=== PATIENT | male | born 1975 | race Caucasian/White ===

== ENCOUNTER 2017-09-13 01:24 | Emergency (ER) | payer MEDICAID ==
[~2017-09-13] VITALS: Ht 193 cm; Wt 122.5 kg
--- NOTE | 2017-09-13 02:08 | NUR ---
PT RECIEVED FROM HOME C/O LOWER LEFT LEG PAIN STATING HE HAD SX LAST WEEK AND SINCE IT HAS "TURNED RED AND HURTS EXTREMELY BADLY" 05/09. NO SOB AT THIS TIME. VSS NAD A/OX4 BUT ANXIOUS AND HAS CALLED SOME STAFF "[employer]".
--- NOTE | 2017-09-13 02:18 | NUR ---
MD GIANCARLO AT BEDSIDE ATTMEPTING TO SPEAK AT TO THE PT BUT PT IS GETTING UPSET. MD WILL ATTEMPT TO SPEAK TO HIM AGAIN SOON
--- NOTE | 2017-09-13 02:44 | NUR ---
PT AND MD MONDRAGON HAVE BOTH AGREED WITH PLAN OF CARE IN WHICH PATIENT WANTS TO SEE MD THAT OPERATED ON HIS FOOT FOR FURTHER INSTRUCTION AND NOT BE SEEN FURTHER HERE
--- NOTE | 2017-09-13 03:01 | NUR ---
PT SIGNED AMA AND HAS LEFT IN STABLE CONDITION
[2017-09-13 03:02] VITALS: BP 155/72
== END 2017-09-13 03:03 | disposition left against medical advice (07) ==
LOC: ER 01:24
DX: L03.116 Cellulitis of left lower limb (principal); R60.0 Localized edema; E11.621 Type 2 diabetes mellitus with foot ulcer; E11.65 Type 2 diabetes mellitus with hyperglycemia; E11.69 Type 2 diabetes mellitus with other specified complication; I10 Essential (primary) hypertension; F10.10 Alcohol abuse, uncomplicated; M86.679 Other chronic osteomyelitis, unspecified ankle and foot; F17.200 Nicotine dependence, unspecified, uncomplicated; Z79.4 Long term (current) use of insulin; Z88.0 Allergy status to penicillin; Z88.5 Allergy status to narcotic agent; Z98.890 Other specified postprocedural states; Z53.20 Procedure and treatment not carried out because of patient's decision for unspecified reasons
CPT/HCPCS: 82962-TC; A4606; Z7610